=== PATIENT | female | born 1960 | race Caucasian/White ===

== ENCOUNTER 2016-08-27 19:13 | Emergency (ER) | payer OTHER ==
[2016-08-27 19:51] VITALS: BP 121/81; PULSE 80; RESP 14; TEMP 98.9; O2SAT 99
[2016-08-27 21:16] LABS: URINE BILIRUBIN NEGATIVE (NEGATIVE); URINE COLOR Colorless (YELLOW); URINE GLUCOSE (UA) NORMAL (Normal); URINE KETONE NEGATIVE (NEGATIVE); URINE LEUKOCYTE ESTERASE TRACE Leu/uL (Negative); URINE PROTEIN NEGATIVE (NEGATIVE); URINE UROBILINOGEN NORMAL mg/dL (0.2-1.0); WBC URINE < 1 /hpf (0-5)
[2016-08-27 21:19] LABS: RBC URINE 1 /hpf (0-3); URINE BLOOD TRACE (NEGATIVE)
--- NOTE | 2016-08-27 21:28 | C.PDOC ---
History Of Present Illness 56 yr old female presents to the ER with complaints of vaginal irritation and painful swelling, gradually developing for the past 3-4 days. Patient states she thought she had scabies, applied permethrine cream all over the body including the vaginal area and states " since then the symptoms worsened". Patient denies fever, chills, nausea, vomiting, abdominal pain, dysuria, hematuria, denies any other active complaints. Pt admits, previous hx of genital herpes. Time Seen by Provider: 08/27/16 20:37 Chief Complaint (Nursing): Female Genitourinary History Per: Patient History/Exam Limitations: no limitations Onset/Duration Of Symptoms: Days (2-3 days) Past Medical History Reviewed: Historical Data, Nursing Documentation, Vital Signs Vital Signs: Last Vital Signs Temp 98.9 F 08/27/16 19:47 Pulse 80 08/27/16 19:47 Resp 14 08/27/16 19:47 BP 121/81 08/27/16 19:47 Pulse Ox 99 08/27/16 21:43 - Medical History PMH: Asthma Family History: States: No Known Family Hx - Social History Hx Alcohol Use: Yes Hx Substance Use: No - Immunization History Hx Tetanus Toxoid Vaccination: Yes Hx Influenza Vaccination: Yes Hx Pneumococcal Vaccination: Yes Review Of Systems Except As Marked, All Systems Reviewed And Found Negative. Constitutional: Negative for: Fever, Chills Gastrointestinal: Negative for: Nausea, Vomiting, Abdominal Pain, Diarrhea, Constipation Genitourinary: Positive for: Other ((+) Vaginal irritation and painful swelling ). Negative for: Dysuria, Incontinence, Hematuria Neurological: Negative for: Weakness, Numbness Physical Exam - Physical Exam Appears: Well, Non-toxic, No Acute Distress Skin: Warm, Dry, No Rash Eye(s): bilateral: PERRL Oral Mucosa: Moist Tongue: Normal Appearing, No Lesions Lips: Normal Appearing, No Lesions Throat: Normal, No Erythema, No Exudate, No Drooling Neck: Trachea Midline, Supple Chest: Symmetrical, No Tenderness Cardiovascular: Rhythm Regular, No Murmur Respiratory: No Rales, No Rhonchi, No Stridor, No Wheezing Gastrointestinal/Abdominal: Soft, No Tenderness, No Distention, No Guarding, No Rebound Back: No CVA Tenderness Pelvic: No Vaginal Bleeding, No Vaginal Discharge, No Cervical Motion Tenderness , Other (Labia Majora Right Side - Diffuse edema with multiple ulcerated lesions. Tender to palpation. ) Extremity: Normal ROM, No Swelling Neurological/Psych: Oriented x3, Normal Speech ED Course And Treatment - Laboratory Results Urine POC: Negative O2 Sat by Pulse Oximetry: 99 Progress Note: On re-eavluation, pt is afebrile, hemodynamicaly stable. Non- toxic. ENT: no acute findings. Neck: (-) meningeal sign. Abd: benign. : exam c/w tender lesion over labia majora. back: (-) CVA tenderness. Pt advised and ref. to F/u with [facility]PECT[facility] in 2-3 days for re-eavl. return to Ed if any worsening or new changes. Medical Decision Making Medical Decision Making: PLAN: * Urinalysis * Doryx PO Disposition Counseled Patient/Family Regarding: Studies Performed, Diagnosis, Need For Followup, Rx Given - Disposition [facility] Disposition: HOME/ ROUTINE Disposition Time: 21:01 Condition: STABLE Additional Instructions: Cold compresses to area Take medication as prescribed Follow up with [facility] in 2-3 days for re-evaluation. Return to Ed if any worsening or new changes. 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 - Scribe Statement The provider has reviewed the documentation as recorded by the Scribeliseo Villagran All medical record entries made by the Samy were at my direction and personally dictated by me. I have reviewed the chart and agree that the record accurately reflects my personal performance of the history, physical exam, medical decision making, and the department course for this patient. I have also personally directed, reviewed, and agree with the discharge instructions and disposition.
== END 2016-08-27 21:35 | disposition home or self-care (01) ==
LOC: C.ER 19:13
DX: N76.0 Acute vaginitis (principal); A60.00 Herpesviral infection of urogenital system, unspecified